=== PATIENT | male | born 1945 | race Caucasian/White ===

== ENCOUNTER 2025-03-17 07:12 | Day surgery (SDC) | payer OTHER, SELFPAY ==
[2025-03-17] VITALS (14 sets, daily range): BP systolic 116–146; BP diastolic 68–82; BMI 24.5
[2025-03-17] MEDS: NSS 239 ML IV (08:01)
--- NOTE | 2025-03-17 13:54 | CONSULT.STRU ---
Consultation
-
Date/Time Consultation Requested: 03/17/2025
Date/Time Consultation Performed: 03/17/2025
Requesting Provider: Dr. Adán Rivera
Performing Provider: ZION Colvin
Reason for Consultation: Aortic stenosis/ TAVR evaluation
Patient History
Physicians
Family Physician: Jacque Yu
Outpatient Press Tender [employer]: Ward Hart
Primary Press Tender [employer]: Ward Hart
History of Present Illness
Mr. Kahn is a very pleasant and active 80yo male with known history of aortic stenosis. Recently he has been experiencing worsening CORRAL with his activities and increased fatigue. He denies chest pain, palpitations, dizziness, syncope, PND,
orthopnea. He does have COPD and interstitial lung disease but feels this CORRAL is different. He follows with Dr. Miner in [place] for his pulmonary issues. His echocardiogram on 10/14/2024 was notable for EF 55-60%, AV PG/M.0/40.2, SERINA: 0.56,
mild AI. He underwent cardiac cath today that demonstrated single vessel RCA disease.
Reviewed the pathophysiology of aortic stenosis with the patient and his daughters Explained the treatment options of SAVR and TAVR. Explained the TAVR evaluation process including follow up BMP, CT TAVR scan, CT surgery consult and Heart Team
discussion. Provided with script for BMP next week, script and appointment for CT TAVR, Consult appointment with Dr. Isabel and a copy of the TAVR education booklet with contact information. Allowed for and answered questions.
Past Medical History
Past Medical History: Angina, CAD, Cancer (Prostate (radiation)), COPD, CORRAL, GERD, Hypercholesterolemia, RAGHU (no CPAP, nocturnal O2 (3L)) and Other (osteoarthritis)
Past Surgical History
Past Surgical History: Other (hernia repair, bilateral TKR)
Dental History
Needs to find a dentist
Family History
Mother: at Age (88yo)
Father: at Age (85yo)
Social History
Alcohol: Daily (beer/wine)
Drug: None
Tobacco: Former Smoker (quit 40 years ago, 1ppd for 20 years)
Personal:
Living: With Spouse
Employment: Retired
Allergies
Allergy/AdvReac Type Severity Reaction Status Date / Time
No Known Allergies Allergy Verified 03/17/25 07:34
Home Medications
�Medication �Instructions �Recorded �Confirmed �Type
albuterol sulfate 90 mcg/actuation 1 inh inhalation ONCE 03/17/25 03/17/25 History
aerosol inhaler
aspirin 81 mg tablet,delayed 81 mg PO DAILY #1 tab 03/17/25 Rx
release
atorvastatin 10 mg tablet 10 mg PO DAILY #1 tab 03/17/25 Rx
bimatoprost 0.01 % eye drops 1 drp ophthalmic (eye) HS 03/17/25 03/17/25 History
(Lumigan)
fluticasone fur. 100 mcg-umeclid 1 inh inhalation DAILY 03/17/25 03/17/25 History
62.5 mcg-vilant 25 mcg
inhalat.powder (Trelegy Ellipta)
ipratropium bromide 17 2 puff inhalation Q8H 03/17/25 03/17/25 History
mcg/actuation HFA aerosol inhaler
omeprazole 20 mg tablet,delayed 20 mg PO DAILY 03/17/25 03/17/25 History
release
STS%
STS %: 1.88%
Review of Systems
-
History Source: Patient
General: Reports Fatigue
HEENT: Reports No Symptoms
Respiratory: Reports CORRAL; Denies Cough or PND
Cardiac: Reports No Symptoms; Denies Chest Pain, Palpitations, Nausea, Vomiting or Edema
Abdomen/GI: Reports Reflux; Denies Nausea, Vomiting or Diarrhea
: Reports No Symptoms, Dysuria, Urgency and Hematuria
Musculoskeletal: Reports No Symptoms
Skin: Reports No Symptoms
Neurological: Reports No Symptoms
Vascular: Reports No Symptoms
Physical Exam
Vital Signs
Temp 97.3 F 03/17/25 07:47
Temp route: Oral 03/17/25 07:47
Pulse 72 03/17/25 13:40
Resp Rate 16 03/17/25 10:57
Blood pressure 131/73 03/17/25 13:29
Blood pressure extremity used: Left upper arm 03/17/25 10:57
Position: Sitting 03/17/25 10:57
MAP (cuff-Pita Monitor) 92 03/17/25 13:29
SaO2 96 03/17/25 13:40
Oxygen Mode of Delivery Room air 03/17/25 10:57
Can the patient verbally communicate their pain? Yes 03/17/25 11:42
Actual Weight 79.8 kg 03/17/25 07:30
Body Mass Index (BMI) 24.5 03/17/25 07:30
Labs
02/23/2025 ([facility])
BUN/Creat: 15/0.89
GFR: 86
WBC: 9.1
Hgb: 13.9
HCT: 41.4
Platelets [id number]
Alb: 4.1
Diagnostic Studies
03/17/2025 Cardiac Catheterization:
HEMODYNAMIC FINDINGS (mmHg):
LV(s/d,EDP): 170/4, 9
Ao(s/d,m): 104/66, 84
Mean gradient on pullback: 46 mmHg
Coronary Angiography:
Dominance: Right
Left Main: Normal
Left Anterior Descending: The left anterior descending artery is a large-caliber vessel that gives rise to 1 large branching high diagonal branch. These vessels have calcification but appear free of focal obstructive disease.
Left Circumflex: The left circumflex is a large-caliber nondominant system that gives rise to 2 major obtuse marginal branches. These vessels are widely patent with only mild luminal irregularities.
Right Coronary: The right coronary artery is a large-caliber vessel that gives rise to a medium caliber posterior descending artery and medium caliber posterior left ventricular branch. The right coronary artery is fairly heavily calcified in the
AV groove. There is smooth 70 to 80% mid RCA stenosis. The distal vessels are widely patent with normal flow and no focal disease.
ASSESSMENT:
1: Single-vessel RCA disease as described above.
2: Severe aortic valvular stenosis.
3: Normal left ventricular filling pressures
CONCLUSIONS and RECOMMENDATIONS:
1: Proceed with TAVR evaluation.
2: Medical therapy for single-vessel coronary artery disease. I doubt this is driving his symptoms but certainly could be treated with intervention if symptoms persist after aortic valve intervention. Will discuss timing of this with the valve
team at [facility].
10/14/2024 Echocardiogram ([facility]):
SUMMARY
1. Left ventricular ejection fraction, by visual estimation, is 55 to 60%.
2. Concentric remodeling of the left ventricle.
3. Decreased left ventricular internal cavity size by (3.11 cm/ 1.55 cm/m2).
4. Normal LV diastolic function.
5. Normal right ventricular size and systolic function.
6. The left atrium is normal in by volume index 21.8 mL/m2.
7. Normal right atrium by area 13.6 cm2.
8. Aortic valve is tricuspid and calcified.
9. AoV velocity of 3.74 m/s; Peak aortic valve gradient = 56.0 mmHg; Mean gradient = 40.2 mmHg; AoV Area by continuity equation = 0.56 cm2; AoV Dimensionless Index = 0.20.
10. Inadequate amount of tricuspid regurgitation to estimate the pulmonary systolic pressure.
11. Study done in Normal sinus rhythm.
12. Compared to a prior TTE study from 09/20/2023 aortic gradients are slightly worse.

PHYSICIAN INTERPRETATION
Left Ventricle:
The left ventricular internal cavity size was decreased. Normal LV diastolic function was demonstrated. Left ventricular ejection fraction, by visual estimation, is 55 to 60%. Concentric remodeling of the left ventricle.
LV Wall Scoring:
All segments are normal.
Right Ventricle:
Normal right ventricular size, wall thickness, and systolic function.
Left Atrium:
The left atrium is normal by volume index 21.8 mL/m2.
Right Atrium:
Right atrium is normal by area 13.6 cm2.
Inferior vena cava normal in size (<2.1 cm) + greater than 50% variably consistent with normal right atrial pressures (3 mmHg).
Interatrial Septum:
Interatrial and interventricular septa appear intact, with no obvious evidence of intracardiac shunting by spectral or color Doppler.
Aortic Valve:
The aortic valve is tricuspid and thickened and calcified. Doppler findings and restricted movement of the aortic valve cusps are consistent with moderate to severe aortic stenosis. The peak aortic valve gradient is 56.0 mmHg. The mean aortic valve
gradient is 40.2 mmHg. There is mild aortic regurgitation.
Mitral Valve:
Structurally normal mitral valve with normal leaflet opening and closing, without any evidence of mitral stenosis or significant regurgitation. The calculated mitral valve area is 4.07 cm�, using a pressure half-time of 54 msec.
Tricuspid Valve:
Inadequate amount of tricuspid regurgitation to estimate the pulmonary systolic pressure.
Pulmonary Valve:
The pulmonary valve is normal in structure and function, with good leaflet excursion, and without any evidence of pulmonary stenosis or significant regurgitation.
Aorta:
The aortic root and ascending aorta appear normal in dimensions, with no evidence of dilatation or obstruction.
Pericardium:
There is no evidence of pericardial effusion.
Sinus Rhythm: Normal sinus rhythm.
Exam
General: Well Developed, Well Nourished and No Apparent Distress
HEENT: Normocephalic, PERRLA and EOMI
Neck: Trachea Midline
Respiratory: Clear; Negative Wheezes, Crackles or Rhonchi
Cardiac: S1/S2, Regular Rhythm and Murmur (Grade II/ MARLA)
GI: Soft, Non Tender, Non Distended and Normal Bowel Sounds
Rectal: Deferred by Provider
Skin: Warm and Dry
Neuro: AO x 3, No Motor Deficits and Nonfocal/Grossly Intact
Extremities: Negative Lower Level Edema
Psych: Calm
Assessment / Plan
-
Procedure Type:�Isolated AVR
Perioperative Outcome Estimate %
Operative Mortality 1.88%
Morbidity & Mortality 7.09%
Stroke 1.32%
Renal Failure 0.755%
Reoperation 3.6%
Prolonged Ventilation 2.86%
Deep Sternal Wound Infection 0.039%
Long Hospital Stay (>14 days) 3.98%
Short Hospital Stay (<6 days)* 52%
Severe Aortic stenosis:
����������� Continue evaluation for aortic stenosis as outpatient
����������� BMP 03/24/2025
����������� CT TAVR scan 03/31/2025 at
����������� CT surgery consult with Dr. Isabel� 04/06/2025
����������� Dental Clearance � needs a dentist
����������� Heart team discussion at [facility]
CAD:
Heart healthy diet
ASA/statin as ordered by cardiology
Discuss at [facility] meeting with Heart team timshanita if necessary to treat the 70-80% mid RCA stenosis
Data Reviewed
-
EKG: Report Reviewed by me
Labor Mediator: Report Reviewed by me, Discussed with Physician, Discussed with Patient and Discussed with Family
Echo: Report Reviewed by me, Discussed with Physician, Discussed with Patient and Discussed with Family
Labs: Labs Reviewed by me
Old Records: Reviewed (Cardiology consult notes)
Total Time Spent with Patient (in minutes): 35
--- NOTE | 2025-03-17 17:42 | ITS.CL.CATH ---
[facility] - Catheterization
Cardiac Catheterization
Procedure Report:
LEFT HEART CATHETERIZATION
Date of Procedure: 03/17/2025
Procedures performed:
1: Coronary angiography
2: Left ventricular hemodynamic assessment
Primary Care Physician: Dr. Jacque Yu
Primary Brake Lining Driller: Dr. Ward Hart
INDICATION: The patient is an 80-year-old man with a past medical history significant for interstitial lung disease and hyperlipidemia who presents with increasing dyspnea in the setting of severe aortic stenosis. He is referred for coronary
angiography in preparation for aortic valve intervention workup. He has no typical angina
ACCESS: The patient was prepped and draped in usual sterile fashion. A 5 Khmer sheath was placed in the right radial artery using the Seldinger over the wire technique.
HEMODYNAMIC FINDINGS (mmHg):
LV(s/d,EDP): 170/4, 9
Ao(s/d,m): 104/66, 84
Mean gradient on pullback: 46 mmHg
ANGIOGRAPHIC FINDINGS:
Single-plane Left Ventriculography in [place] Projection: Not done. Normal EF by echocardiogram performed in October 2024.
Coronary Angiography:
Dominance: Right
Left Main: Normal
Left Anterior Descending: The left anterior descending artery is a large-caliber vessel that gives rise to 1 large branching high diagonal branch. These vessels have calcification but appear free of focal obstructive disease.
Left Circumflex: The left circumflex is a large-caliber nondominant system that gives rise to 2 major obtuse marginal branches. These vessels are widely patent with only mild luminal irregularities.
Right Coronary: The right coronary artery is a large-caliber vessel that gives rise to a medium caliber posterior descending artery and medium caliber posterior left ventricular branch. The right coronary artery is fairly heavily calcified in the
AV groove. There is smooth 70 to 80% mid RCA stenosis. The distal vessels are widely patent with normal flow and no focal disease.
Fluoroscopy Time (min): 3.1
Radiation Dose (mGy): 271
DAP (Gy.cm2): 18
Closure device: None. A TR band was applied for hemostasis at the right wrist.
Complications: None.
ASSESSMENT:
1: Single-vessel RCA disease as described above.
2: Severe aortic valvular stenosis.
3: Normal left ventricular filling pressures
CONCLUSIONS and RECOMMENDATIONS:
1: Proceed with TAVR evaluation.
2: Medical therapy for single-vessel coronary artery disease. I doubt this is driving his symptoms but certainly could be treated with intervention if symptoms persist after aortic valve intervention. Will discuss timing of this with the valve
team at [facility].
Ness Rivera M.D.
Copy to: Dr. Jacque Yu
== END 2025-03-17 14:10 | disposition home or self-care (01) ==
LOC: CATH 07:12
PROVIDERS: ATTENDING PHYSICIAN Internal Medicine Interventional Cardiology; FAMILY PHYSICIAN Family Medicine; OTHER PHYSICIAN Internal Medicine Cardiovascular Disease
DX: I25.10 Atherosclerotic heart disease of native coronary artery without angina pectoris (principal); I08.2 Rheumatic disorders of both aortic and tricuspid valves; E78.00 Pure hypercholesterolemia, unspecified; J44.9 Chronic obstructive pulmonary disease, unspecified; J84.9 Interstitial pulmonary disease, unspecified; R06.09 Other forms of dyspnea; K21.9 Gastro-esophageal reflux disease without esophagitis; G47.33 Obstructive sleep apnea (adult) (pediatric); Z85.46 Personal history of malignant neoplasm of prostate; Z87.891 Personal history of nicotine dependence; Z79.82 Long term (current) use of aspirin
CPT/HCPCS: C1894; 93458; Q9967

== ENCOUNTER → 2025-03-31 09:53 | Outpatient (REF) | payer OTHER, SELFPAY | LOC: RAD 09:53 | PROVIDERS: ATTENDING PHYSICIAN Nurse Practitioner Adult Health; OTHER PHYSICIAN Internal Medicine Critical Care Medicine | DX: I35.0 Nonrheumatic aortic (valve) stenosis (principal) | CPT/HCPCS: 74174; 75572; Q9967 ==

== ENCOUNTER 2025-04-14 08:20 | Day surgery (SDC) | payer OTHER, SELFPAY ==
[2025-04-14] VITALS (11 sets, daily range): BP systolic 120–148; BP diastolic 60–82; BMI 25.6
[2025-04-14 08:44] LABS: Hematocrit 44.4 % (39.0-52.0); Hemoglobin 15.4 g/dL (13.0-18.0); Mean Corp Hgb Conc. 34.7 g/dL (33.0-37.0); Mean Corpuscular Hgb 32.2 pg (27.0-31.0); Mean Corpuscular Volume 92.9 fL (80.0-94.0); Platelet Count 188 10^3/uL (130-400); Red Blood Cell Count 4.78 10^6/uL (4.70-6.10); Red Cell Dist. Width 13.1 % (11.5-14.5); White Blood Cell Count 6.9 10^3/uL (4.8-10.8)
[2025-04-14] MEDS: LOW STRENGTH ASPIRIN 81 MG PO (09:11)
[2025-04-14] MEDS: NSS 236 ML IV (09:13)
[2025-04-14] MEDS: NSS 1000 IV (10:43)
--- NOTE | 2025-04-14 10:56 | ITS.CL.ANGIO ---
[employer] - Angioplasty
Angioplasty
Procedure Report:
LEFT HEART CATHETERIZATION
Date of Procedure: April 14, 2025
Procedures performed:
1: Percutaneous coronary intervention of the right coronary artery with placement of a 3.5 x 26 mm Art drug-eluting stent postdilated to high-pressure with a 3.75 mm diameter noncompliant balloon
Primary Care Physician: Dr. Jacque Yu
Primary Machine Adjuster Leader Case Trim: Dr. Ward Hart
INDICATION: The patient is an 80-year-old man with past medical history significant for interstitial lung disease and hyperlipidemia who is being evaluated for TAVR. Pre-TAVR workup found a obstructive mid RCA lesion and after the valve team
discussion we have elected to proceed with PCI prior to TAVR. He was pretreated with Plavix.
ACCESS: The patient was prepped and draped in usual sterile fashion. A 6 Gibraltarian sheath was placed in the right radial artery using the Seldinger over the wire technique.
HEMODYNAMIC FINDINGS (mmHg):
LV(s/d,EDP): Valve not crossed
Ao(s/d,m): 111/80, 94
Coronary Angiography:
Please refer to full diagnostic study performed at [facility] on March 17, 2025
Percutaneous Coronary Intervention (PCI): The patient was pretreated with aspirin and Plavix. A 6 Gibraltarian JR4 guiding catheter was used to engage the right coronary artery. A Hi-Torque floppy wire was easily advanced across the mid lesion into the
distal vessel. Predilation was performed with a 2.5 x 12 mm balloon. A 6 Gibraltarian Guideliner was required to deliver a 3.5 x 26 mm Elwood drug-eluting stent which was deployed at 14 sharmin. The stent was postdilated with a 3.75 mm diameter noncompliant
balloon inflated to 16 sharmin. This was done in a distal to proximal fashion taking care to stay within the stented margins.
FINAL RESULT: 0% in-stent residual stenosis with an outstanding angiographic result and XIN-3 flow in all vessels
Fluoroscopy Time (min): 6.7
Radiation Dose (mGy): 341
DAP (Gy.cm2): 22
Closure device: None. A TR band was applied for hemostasis at the right wrist.
Complications: None.
ASSESSMENT:
1: Successful PCI of the right coronary artery with placement of a drug-eluting stent as described above.
2: Known severe aortic valvular stenosis.
CONCLUSIONS and RECOMMENDATIONS:
1: Routine post PCI medical therapy and monitoring. The patient will need dual antiplatelet therapy with aspirin 81 mg and clopidogrel 75mg daily for a year and aspirin 81 mg daily uninterrupted indefinitely.
2: Medical therapy for coronary artery disease.
3: Continue TAVR evaluation and plan.
Ness Rivera M.D.
[2025-04-14 12:01] LABS: ACT-LR - POC > 397 Seconds (116-155)
--- NOTE | 2025-04-14 15:04 | W.PN.UPDATE ---
Update Note
Progress Note Update
80 yo WM s/p PCI RCA (same day). He denies cp, sob, tom diet, voiding, amb w/o dizziness, EKG SR PAC's, one episode of PAT, R rad site c/d/i no HT, soft. He will continue DAPT ASA/Plavix. He will have TAVR next month. Cardiac rehab c/s. He will f/u
Dr. Hart in 1 mo. He is for d/c home after 330p.
== END 2025-04-14 15:30 | disposition home or self-care (01) ==
LOC: CATH 08:20
PROVIDERS: ATTENDING PHYSICIAN Internal Medicine Interventional Cardiology; FAMILY PHYSICIAN Family Medicine; OTHER PHYSICIAN Internal Medicine Cardiovascular Disease
DX: I25.10 Atherosclerotic heart disease of native coronary artery without angina pectoris (principal); Z79.02 Long term (current) use of antithrombotics/antiplatelets; Z79.82 Long term (current) use of aspirin; I35.0 Nonrheumatic aortic (valve) stenosis
CPT/HCPCS: 85027; 85347; 93005; C1725; C1769; C1874; C1887; C1894; C9600; Q9967

== ENCOUNTER 2025-05-27 07:23 | Inpatient (IN) | payer OTHER, SELFPAY ==
--- NOTE | 2025-05-12 11:21 | HPS.HSE ---
Family Physician
-
Family Physician: Jacque Yu
Chief Complaint
-
CORRAL, Fatigue
History of Present Illness
Mr. Kahn is a very pleasant and active 80yom with a past medical history significant for , CAD, COPD, RAGHU (nocturnal O2), HLD, and prostate ca. Recently he has had worsening CORRAL with his activities and increased fatigue. He denies chest pain,
palpitations, dizziness, syncope, PND, orthopnea. He follows with pulmonology, Dr. Miner in [employer]. His echocardiogram on 10/14/2024 is notable for EF 55-60%, AV PG/M.0/40.2, SERINA: 0.56, mild AI. Cardiac catheterization from 03/17/2025
demonstrated single vessel RCA disease. He was brought back for PCI to the RCA on 04/14/[address] Rivera. Reviewed patient with the heart team in the SDM meeting on 04/02/2025 and the team was agreeable to proceed with TF TAVR utilizing a 29 mm S3
via transfemoral access. Reviewed the risks of the procedure with the patient as discussed in consult with Dr. Isabel including PPM, vascular injury, and stroke. Assessed patient in preadmission testing and confirmed medication list. He will take
aspirin and plavix prior to his 0730 [facility]. Allowed for and answered questions to the best of my ability.
Medical History
Past Medical History
Past Medical History: Reports CAD (Recent JAMI to RCA), Cancer (prostate (XRT)), COPD, GERD, Valvular Disease (As) and Other (RAGHU, hyperlipidemia, BLACKFEET)
Past Surgical History: Reports Orthopedic (TKR) and Other (inguinal hernia repair, cataract surgery)
Social History
Tobacco: Former Smoker
Alcohol: Daily (1-2 drinks (beer or wine))
Drug: None
Personal:
Living: With Family
Employment: Retired
Family History
Family History: Not pertinent
Allergies / Home Medications
Allergies reflects when Allergies were last updated in [employer] (mytaxi).
Home Medications with original date entered in [employer] (mytaxi)
Albuterol Sulfate HFA 108 (90 Base) MCG/ACT Aerosol Solution 1 puff as needed Inhalation every 4 hrs
Aspirin Adult Low Dose(Aspirin) 81 MG Tablet Delayed Release 1 tablet Orally Once a day
Atorvastatin Calcium 10 MG Tablet 1 tablet Orally Once a day
Bimatoprost 0.01 % Solution 1 drop into affected eye in the evening Ophthalmic Once a day , Notes to Pharmacist: millie
Dupixent(Dupilumab) 300 MG/2ML Solution Prefilled Syringe as directed Subcutaneous every 2 weeks
Ipratropium [place] HFA 17 MCG/ACT Aerosol Solution 2 puffs as needed Inhalation every 8 hrs
Omeprazole 20 MG Capsule Delayed Release 1 capsule 1/2 to 1 hour before morning meal Orally Once a day
Trelegy Ellipta(Jfzrryoedyo-Bjrjrsuoj-Ufspqy) 100-62.5-25 MCG/ACT Aerosol Powder Breath Activated 1 puff Inhalation Once a day
Allergy/Medication List:
NKDA
Review of Systems
-
History Source: Patient
A 12 point ROS was completed and negative except as noted: Yes
Constitutional: Reports Fatigue
Respiratory: Reports Other (CORRAL)
Physical Exam
Physical Exam
General: Well Developed and Well Nourished
HEENT: NormoCephalic
Respiratory: Clear
Cardiac: Murmur (III/)
Breast: Deferred by me
GI: Soft, Non Tender and Non Distended
Rectal: Deferred by Provider
Genito-urinary: Deferred by me
Musculoskeletal: No Edema
Skin: Warm and Dry
Neuro: Awake, Alert and Oriented
Psych: Calm
Data Reviewed
-
CT Scan: Report Reviewed by me and Discussed with Physician (TAVR CT scan reviewed with the heart team)
Medical Tests (Nuc Med, Echo, EKG etc): Report Reviewed by me and Discussed with Physician (Echo and cath reviewed with the heart team)
Lab Data: Labs Reviewed by me
Old Records: Reviewed
Impression/Plan
-
IMPRESSION/PLAN:
Aortic Stenosis
TF TAVR planned utilizing a 29 mm S3 with Drs. Zaragoza and Chalo
Continue aspirin and plavix
POD#1/#30 echocardiogram
Cardiac rehab consult
Labs
-
Labs:
WBC 7.0 10^3/uL (4.8-10.8) 05/12/25 12:21
RBC 4.67 10^6/uL (4.70-6.10) L 05/12/25 12:21
Hgb 14.6 g/dL (13.0-18.0) 05/12/25 12:21
Hct 43.1 % (39.0-52.0) 05/12/25 12:21
Plt Count 179 10^3/uL (130-400) 05/12/25 12:21
Sodium 137 mmol/L (135-145) 05/12/25 12:21
Potassium 4.8 mmol/L (3.5-5.1) 05/12/25 12:21
Chloride 103 mmol/L (98-107) 05/12/25 12:21
Carbon Dioxide 25 mmol/L (22-30) 05/12/25 12:21
BUN 12 mg/dl (9-20) 05/12/25 12:21
Creatinine 0.7 mg/dL (0.7-1.3) 05/12/25 12:21
eGFR > 60.00 05/12/25 12:21
Glucose 108 mg/dl (70-99) H 05/12/25 12:21
Calcium 9.8 mg/dl (8.4-10.2) 05/12/25 12:21
Tuv-E-Ujkgxsmgfgy Pept 335 pg/ml 05/12/25 12:21
Albumin 4.6 g/dl (3.5-5.0) 05/12/25 12:21
[2025-05-12 12:07] VITALS: BMI 24.8
[2025-05-12 13:00] LABS: Hematocrit 43.1 % (39.0-52.0); Hemoglobin 14.6 g/dL (13.0-18.0); Mean Corp Hgb Conc. 33.9 g/dL (33.0-37.0); Mean Corpuscular Volume 92.3 fL (80.0-94.0); Nucleated Red Blood Cells % 0 % (-); Platelet Count 179 10^3/uL (130-400); Red Cell Dist. Width 13.0 % (11.5-14.5)
[2025-05-12 13:06] LABS: INR 0.90; PT 12.6 Sec (11.4-14.6)
[2025-05-12 13:13] LABS: ALT (SGPT) 15 U/L (0-50); AST (SGOT) 18 U/L (17-59); Albumin 4.6 g/dl (3.5-5.0); Alkaline Phosphatase 63 U/L (38-126); Blood Urea Nitrogen 12 mg/dl (9-20); Calcium 9.8 mg/dl (8.4-10.2); Carbon Dioxide 25 mmol/L (22-30); Chloride 103 mmol/L (98-107); Estimated Creatinine Clearance 85 ml/min; Glucose 108 mg/dl (70-99); Potassium 4.8 mmol/L (3.5-5.1); Sodium 137 mmol/L (135-145); Total Protein 7.8 g/dl (6.3-8.2); eGFR > 60.00
[2025-05-12 13:50] LABS: Urine Character Clear (Clear)
[2025-05-12 13:56] LABS: Glycohemoglobin (HgbA1c) 5.3 % (4.0-5.6)
--- NOTE | 2025-05-12 14:02 | CM ---
Chart reviewed. Met with the patient in PAT. Reviewed preoperative and postoperative instructions and restrictions, along with showering guidelines. Gave patient 2 soaps. Patient is agreeable to a home visit by CT Transitional RN. Patient is
independent of ADLS, lives with his in a 2 STH, 1 NADIR, 0 DME. Plan is for the patient to go home with CT Transitional RN.
[2025-05-27] VITALS (24 sets, daily range): BP systolic 73–154; BP diastolic 49–86; BMI 24.5
[2025-05-27] MEDS: ANCEF 10 IV ×2 (10:00)
--- NOTE | 2025-05-27 10:27 | CM ---
Patient in OR today for planned TAVR.
Reviewed initial assessment. Pt. resides w/ spouse in a 1 STH, 0 NADIR. Functionally, patient is indep. at baseline w/ ADLs, mobility without the use of any assisted device.
Antic. DC plan is for home w/ CT Transitional Care RN.
CM to follow.
[2025-05-27 11:26] LABS: ACT-LR - POC 327 Seconds (116-155)
--- NOTE | 2025-05-27 11:38 | W.CVOR.SURPR ---
CVOR Surgeon Immed Pre Op
-
The structural heart team examined this patient prior to performance of the scheduled procedure.
The patient's condition is unchanged from the time of the dictated/written History and
Physical and the patient is able to undergo the scheduled procedure.
--- NOTE | 2025-05-27 11:38 | W.IMMPOSTOP ---
Surgical Immed Post Op Note
-
[id number]
STRUCTURAL HEART PROCEDURE NOTE:
Preoperative Dx:
Severe aortic stenosis (P/M 56/40.2, SERINA 0.56)
Mild aortic insufficiency
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
COPD/ILD
RAGHU on CPAP, 3L NC at HS
[place]
Prostate CA s/p XRT
OA s/p b/l TKA
Postoperative Dx:
Same
Procedures:
1) L MEDICAL DATA ENTRY CLERK access w/ tactile, U/S, and fluoroscopic guidance, micropuncture technique, limited angiography, long 6Fr sheath placement
2) L CFV access w/ U/S and fluoroscopic guidance, micropuncture technique, long 6Fr sheath placement
3) R MEDICAL DATA ENTRY CLERK access w/ tactile, U/S, and fluoroscopic guidance, micropuncture technique, limited angiography, 8Fr dilator placement
4) Perclose placement x 2 into R MEDICAL DATA ENTRY CLERK, 8Fr sheath placement
5) Attempted placement of temporary pacing wire via L CFV access - unsuccessful
6) Exchange of long 6Fr L CFV sheath for longer 6Fr venous sheath - attempted temporary pacing wire placement - unsuccessful
7) Limited IVC/RA venography
8) R IJ access w/ U/S and fluoroscopic guidance, 6Fr sheath placement
9) Placement of temporary pacing wire via R IJ - threshold testing
10) Placement of pigtail catheter in RCC w/ limited aortography & confirmation of coplanar valve deployment angles
11) Placement of Jennings E-sheath via R MEDICAL DATA ENTRY CLERK (systemic heparinization)
12) Wire purchase across stenotic AV (AL-1, soft-tip straight, LVEDP assessment (23mmHg), extra-stiff wire)
13) R TF TAVR w/ placement of 29mm NIRANJAN 3
14) Completion aortography
15) Completion TTE (mean gradient 3mmHg, trace PVL)
16) Removal of valve delivery system/Jennings E-sheath w/ R MEDICAL DATA ENTRY CLERK mgmt w/ perclose sutures x 2; manual pressure, completion R ileofemoral angiography
17) Removal of temporary pacing wire
18) Removal of L MEDICAL DATA ENTRY CLERK 6Fr sheath w/ mgmt w/ 6Fr angioseal; manual pressure
19) Removal of L CFV 6Fr sheath; manual pressure
20) R IJ 6Fr sheath maintained in-situ
Digital Commentator:
Dr. María Zaragoza
Cardiac Surgeon:
Dr. Ernie Isabel
Anesthesia:
MAC & local to B/L groins, R neck
Implants:
Jennings [employer], 29mm NIRANJAN 3; [id number], SN: [id number]
Perclose x 2 to R MEDICAL DATA ENTRY CLERK
6Fr angioseal x 1 to L MEDICAL DATA ENTRY CLERK
Complications:
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
Cath Data:
Start: 1020hrs, Deploy: 1117hrs, End: 1134hrs
FT: 13.9min, mGy: 237, DAP: 27, Contrast: 100
Post-TTE: mean gradient 3mmHg, trace PVL
Condition:
Stable/guarded to recovery
[2025-05-27] MEDS: LEVOPHED 250 IV (12:09)
--- NOTE | 2025-05-27 12:50 | ITS.CL.TAVR ---
Media Services Director - TAVR Report
TAVR PRocedure
Procedure Report:
TRANSCATHETER AORTIC VALVE REPLACEMENT
Date of Procedure: May 27, 2025
Referring: Drs. Ward Hart and Ness Rivera
Operators: Drs. María Zaragoza and Ernie Isabel
PROCEDURE PERFORMED:
1. Successful placement of 29 mm Jennings Gilberto S3 aortic valve via right common femoral approach.
ACCESS:
1. Right common femoral artery, 16 Kosovan sheath, under ultrasound guidance using a micropuncture kit.
2.Left common femoral vein, 6 Kosovan sheath, under ultrasound guidance using a micropuncture kit.
3. Left common femoral artery, 6 Kosovan sheath, under ultrasound guidance using a micropuncture kit.
4. Right internal jugular vein, 6 Kosovan sheath, under ultrasound guidance using a micropuncture kit.
Ultrasound was utilized for vascular access. The right and left femoral artery and vein were visualized under ultrasound, and the vessels was patent and arteries were pulsatile. An image was stored permanently in the patient's medical record.
Under direct ultrasound guidance, a 6 Kosovan sheaths was inserted into the left common femoral artery and vein, and an 8 Kosovan sheath in the right common femoral artery, and a 6 ecuadorean sheath in RIJ vein respectively, using a micropuncture kit
through a modified Seldinger technique
PREPROCEDURE NYHA CLASS: II
DESCRIPTION OF PROCEDURE: The patient was referred for assessment of severe symptomatic aortic stenosis and following a comprehensive evaluation it was felt that transcatheter aortic valve replacement (TAVR) would be the most appropriate treatment.
Informed consent was obtained prior to the procedure. A 'time-out' was called and the procedural plan was verbally confirmed by anesthesia, surgery, perfusion, and open hearth furnace laborer staff.
Arterial and venous access site were obtained in the left
common femoral artery and vein using ultrasound guidance and micropuncture technique. 6 Fr. sheaths were inserted.
Given despite multiple attempts we could not successfully advance a deep transvenous pacing wire into the right ventricle due to significant tortuosity in the IVC, decision was made to proceed with right IJ venous access and a 5 Fr. transvenous
pacing wire was succesfully advanced to the right ventricle where excellent pacing thresholds were obtained.
A 5 Fr. pigtail catheter was then advanced to the proximal ascending aorta / right aortic cusp where angiography was performed in multiple angles to define the co-planar angle that was most appropriate valve deployment (COTTON 10/CAU 16).
Ultrasound guidance was then used to obtain arterial access in the right common femoral artery and a 4 Fr. micropuncture sheath was inserted. Angiography was performed and the arteriotomy site appeared appropriate for preclosure with two Perclose
devices. An 8 Fr sheath was then inserted back into the common femoral artery over a J-tipped guidewire. An AL1 catheter was positioned in the proximal descending aorta. An Extra Stiff 0.035' J-tip wire was inserted to provide extra-support to
facilitate the Jennings eSheath delivery. The 16 Fr. Jennings eSheath was successfully advanced in the descending thoracic aorta.
An AL1 catheter was advanced through the Jennings eSheath over a 0.035' J-tip guide wire. The AL1 catheter was positioned just above the aortic valve. A 0.035' Straight tip wire probed the aortic valve and crossed the stenotic leaflets. The AL1
was then advanced to the mid left ventricle. Estimated LV end-diastolic pressure invasively was 23mmHg. An Amplatz Extra-stiff wire with a generous curved tip was then positioned in the left ventricular apex. A 29 mm Jennings Gilberto S3 valve was
brought to the table and the orientation of the valve on the balloon delivery system was confirmed by all operators. The Gilberto S3 valve was advanced through the eSheath and into the proximal descending thoracic aorta. The Gilberto S3 valve was
centered on the delivery balloon and the entire system was retroflexed as it crossed the aortic arch. The Gilberto S3 delivery system was then advanced across the stenotic valve and the 29 mm Gilberto S3 valve was deployed during rapid pacing. The
valve deployment was uneventful. Transthoracic echocardiographic images post valve deployment revealed minimal aortic insufficiency with excellent position of the aortic prosthesis.
The Jennings balloon and delivery system were then removed. The Jennings sheath was removed and the Perclose knots were advanced to the arteriotomy site resulting in excellent hemostasis.
Bilateral femoral angiography: Femoral arteriotomy above the bifurcation and below the inferior epigastric artery. There is mild atherosclerotic plaque diffusely in the visualized external iliac and femoral vessels.
Fluoro Time: 13.9 min, Dose: 237 mGy, DAP : 27 Gy.cm2
CONCLUSIONS:
1. Severe symptomatic aortic stenosis. Successful deployment of a 29 mm Gilberto S3 valve with minimal aortic insufficiency post procedure
2. Successful arteriotomy closure with 2 Perclose devices.
María Zaragoza MD, FACC, [facility]
Copy to: Drs. Ward Hart and Ness Rivera
[2025-05-27] MEDS: ANCEF 5 IV (18:18)
[2025-05-27] MEDS: XALATAN OPHTHALMIC SOLUTION 1 DROP BOTH EYES (18:37)
--- NOTE | 2025-05-27 19:33 | PTCARENOTE ---
Pt received from recovery area post TAVR. Pt denied any discomfort. Pt with bilateral femoral dressings, some oozing from right femoral artery, dressing changed twice, left femoral site with dry and intact dressing. No sign of hematoma at either
site. Telemetry initially showed sinus rhythm with LBBB. Once pt was up off bedrest LBBB was no longer visible. Pt walking in halls, eating well and passing urine without difficulty. Will monitor groin sites closely, plan for ECHO in AM.
[2025-05-27] MEDS: SYMBICORT 80/4.5 MCG INHALER 2 PUFF INH (19:48)
[2025-05-27] MEDS: PEPCID 20 MG PO (22:09)
[2025-05-27] MEDS: LIPITOR 10 MG PO (22:10)
--- NOTE | 2025-05-27 23:48 | PTCARENOTE ---
Patient received at change of shift resting in the bed. Sinus rhythm with first degree AVB on telemetry. Oxygen saturation 96% on room air. Bilateral groin sites ecchymotic but soft to palpation, no evidence of hematoma. Left groin C/D/I. Right
groin site oozing, drainage marked. Bilateral pedal pulses palpable. Right IJ puncture with gauze and tegaderm C/D/I. The patient presently denies pain or discomfort, feels good overall. Per the patient he sleeps with 3L NC, applied HS, oxygen
saturation 97% on 3L.
The right groin site was noted to still be oozing, manual pressure was held, external hemostasis pad, gauze and tegaderm applied. The right groin continued to ooze and the drainage was marked. CT surgery SHAQ Marin in to assess, Further manual
pressure was applied followed by the sandbag being applied for one hour. Following removal of the sandbag the site was no longer oozing as it was previously. The patient continues to deny pain. VSS. Plan of care discussed. Call dubose within reach.
Care ongoing.
[2025-05-28 02:40] VITALS: BP 142/79
[2025-05-28 02:47] VITALS: BMI 24.6
[2025-05-28 02:59] LABS: Hematocrit 37.3 % (39.0-52.0); Hemoglobin 12.9 g/dL (13.0-18.0); Mean Corp Hgb Conc. 34.6 g/dL (33.0-37.0); Mean Corpuscular Volume 91.4 fL (80.0-94.0); Platelet Count 142 10^3/uL (130-400); Red Cell Dist. Width 13.0 % (11.5-14.5)
[2025-05-28 03:29] LABS: Blood Urea Nitrogen 19 mg/dl (9-20); Calcium 9.0 mg/dl (8.4-10.2); Carbon Dioxide 24 mmol/L (22-30); Chloride 107 mmol/L (98-107); Estimated Creatinine Clearance 85 ml/min; Glucose 108 mg/dl (70-99); Potassium 4.7 mmol/L (3.5-5.1); Sodium 135 mmol/L (135-145); eGFR > 60.00
[2025-05-28 06:36] VITALS: BP 131/78
[2025-05-28] MEDS: SPIRIVA RESPIMAT 2.5 MCG 2 PUFF INH (07:11)
[2025-05-28] MEDS: SYMBICORT 80/4.5 MCG INHALER 2 PUFF INH (07:11)
[2025-05-28 07:32] VITALS: BP 106/68
--- NOTE | 2025-05-28 08:50 | W.PN.CT ---
Today's Communication / Plan
-
-pod #1
-no significant issues overnight
-little oozing in R groin, likely from subcut. tissues, asymptomatic, BP stable - resolved with manual pressure and sandbag
-new LBBB post TAVR- resolved
-nsr high 50s-60s overnight. No ronak or pauses
-Echo today
-current meds (ASA, Plavix, Lipitor, Pepcid, Symbicort, Spiriva, Albuterol)
-encourage IS, ambulate
-possible d/c home with heart monitor
Assessment / Plan
-
- Severe symptomatic - s/p R TF TAVR w/ placement of 29mm NIRANJAN 3 TAVR valve on 05/27/25, pod #1
- Post-TTE: mean gradient 3mmHg, trace PVL
- LVEDP assessment (23mmHg)
- Mild aortic insufficiency/severe
- Single vessel RCA dz s/p PCI/JAMI
- COPD/ILD
- RAGHU on CPAP, 3L NC at HS
- [place]
- Prostate CA s/p XRT
- OA s/p b/l TKA
- OA
- b/l inguinal hernia repair
Discussed patient care with: Nursing and Care Team
Subjective
-
Date of Service: May 28, 2025
Objective Data
-
PT 12.6 Sec (11.4-14.6) 05/12/25 12:21
INR 0.90 05/12/25 12:21
Vital Signs
Vital Signs
Temp Pulse Resp BP Pulse Ox
99.0 F 57 18 136/86 97
05/27/25 23:04 05/28/25 01:00 05/27/25 23:04 05/27/25 23:04 05/27/25 23:04
CT Intake/Output/Weight
05/27/25 05/27/25 05/28/25
06:59 18:59 06:59
Intake Total 1800 / 1800
Output Total 300 / 400 100 / 400
Balance 1500 / 1400 -100 / 1400
SaO2: 97
Physical Exam
-
General: Awake and AOx3
Cardiovascular: Regular rate & rhythm and Murmur (11/09 systolic @ lsb)
Respiratory: Clear
Incision: Other (groins are cdi, soft, nontender, no hematoma b/l)
Extremities: No Edema
Abdomen: soft, nontender, nondistended, + bowel sounds
Data Reviewed
-
Lab Results: Results Reviewed
Medications: Active Meds Reviewed
Chest X-Ray: Report Reviewed and Image Reviewed
ECG: Report Reviewed and Image Reviewed
[2025-05-28] MEDS: PLAVIX 75 MG PO (09:25)
[2025-05-28] MEDS: ASPIR LOW (ENTERIC COATED) 81 MG PO (09:25)
--- NOTE | 2025-05-28 09:41 | W.PN.CARDCBS ---
Addendum entered and electronically signed by María Zaragoza MD 05/28/25 12:17:
I saw and examined the patient.
The Shell Sieve Operator's note was reviewed and I agree with the note.
Comment: Patient is doing well post transfemoral 29 mm Jennings NIRANJAN TAVR valve on May 27, 2025. Mild oozing at the right femoral arterial access site. Minimal tenderness. No other complaints this morning. He did not sleep well overnight.
Vital signs and lab work reviewed. On exam patient is well-appearing, awake, alert and oriented x 3, regular rate, normal S1 and S2, no murmur, rubs or gallops, lungs are clear to auscultation bilaterally, no JVD, abdomen is soft, nontender,
nondistended with active bowel sounds, warm extremities without significant edema. Bilateral groin sites with dressing in place without evidence of hematoma or bruit.
Recommendations:
1. Patient is status post transfemoral 29 mm Jennings NIRANJAN TAVR on May 27, 2025. Echocardiogram this morning with stable post TAVR mean transaortic gradients of 8 mm with normal LV systolic function and no evidence of pericardial effusion.
2. Continue with daily baby aspirin and Plavix given recent PCI.
3. We will send home with a Holter monitor given transient left bundle branch block and bradycardia.
4. Outpatient cardiology follow-up with Dr. Ward Hart.
Overall as long as groins remain stable especially with ambulation patient stable for discharge home.
María Zaragoza MD, [facility], [facility]
Original Note:
Today's Communication / Plan
-
doing well post TAVR
continue asa, plavix
follow groins, oozy overnight
echo pending
possible security monitor upon DC
OP follow up with Dr. Hart
Impression / Plan
-
[facility] Blueprint Processor[facility]
Assessment:
- Severe symptomatic s/p R TF TAVR 29mm NIRANJAN 3 TAVR 05/27/25
- Transient post op LBBB
- Mild aortic insufficiency
- CAD s/p RCA PCI 04/14/25
- COPD/ILD
- RAGHU on CPAP, 3L NC at HS
- [place]
- Prostate CA s/p XRT
- OA s/p B/L TKA
Echo 05/27/2025: EF 55%, status post 21 mm Jennings NIRANJAN S3 TAVR with peak/mean gradient 6/3 mmHg, trace AR, normal pericardium without effusion
Plan:
- Status post right transfemoral TAVR 05/23/2025
-Doing well overnight
-Had some oozing from right groin site, now improved. With bilateral bruising, but soft, nontender to palpation. Hemoglobin 12.9. Continue aspirin and Plavix given recent RCA PCI 04/2025
-Echo from 05/27 as above, check echo 05/28
-Had transient left bundle branch block postprocedure, no evidence of recurrence or bradycardia/pauses on review of telemetry overnight. Will determine need for cardiac monitoring on discharge
-Ambulate
-For likely discharge to home later today
-Outpatient cardiac follow-up with Dr. Hatr
-Discussed with nursing, CT surgery
Progress Note - Blueprint Processor
Subjective
Date of Service: May 28, 2025
Patient reports did not sleep well, however no complaints of chest pain or shortness of breath. Denies groin pain
Objective
Labs:
05/28/25 02:45
05/28/25 02:45
Labs
Hgb 12.9 g/dL (13.0-18.0) L 05/28/25 02:45
Hct 37.3 % (39.0-52.0) L 05/28/25 02:45
Plt Count 142 10^3/uL (130-400) 05/28/25 02:45
PT 12.6 Sec (11.4-14.6) 05/12/25 12:21
INR 0.90 05/12/25 12:21
Sodium 135 mmol/L (135-145) 05/28/25 02:45
Potassium 4.7 mmol/L (3.5-5.1) 05/28/25 02:45
BUN 19 mg/dl (9-20) 05/28/25 02:45
Creatinine 0.7 mg/dL (0.7-1.3) 05/28/25 02:45
Glucose 108 mg/dl (70-99) H 05/28/25 02:45
Vital Signs and I&O:
Vital Signs
Temp Pulse Resp BP Pulse Ox
97.9 F 75 16 106/68 95
05/28/25 07:32 05/28/25 07:32 05/28/25 07:32 05/28/25 07:32 05/28/25 09:20
Vital Signs
Temp Pulse Resp BP Pulse Ox
97.9 F 75 16 106/68 95
05/28/25 07:32 05/28/25 07:32 05/28/25 07:32 05/28/25 07:32 05/28/25 09:20
Intake & Output
05/26/25 05/27/25 05/28/25 05/29/25
07:59 07:59 07:59 07:59
Intake Total 1800 / 1800
Output Total 1450 / 1450
Balance 350 / 350
Physical Exam
Physical Exam
GEN: No distress, awake, alert, oriented x3
HEENT: supple, anicteric, mmm, eomi
LUNGS: CTA B/L, no wheezes/rales
CV: Reg, S1/S2, 1/6 syst LSB
ABD: soft, BS+, NT/ND
EXT: No cyanosis, clubbing, edema
NEURO: Gross non-focal
SKIN: Warm, pink, dry. No rash. B/L groin sites soft, NTTP. B/L ecchymoses extending around flank, not firm/tense, mild amount of blood on R groin dressing
--- NOTE | 2025-05-28 10:12 | W.DCSUMMARY ---
Discharge Summary
Discharge Data
Date of Admission: 05/27/25
Date of Discharge: 05/28/25
-
Pending Results: No
Hospital Course
Primary care physician: Jacque Yu
Outpatient aircraft servicer: Pramod Hart
Inpatient consultants: [facility]
Procedures:
1. R TF TAVR
Primary Diagnosis:
1. severe aortic stenosis with mild aortic insufficiency
Secondary Diagnoses:
1. 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
2. COPD/ILD
3. RAGHU on CPAP, 3L NC at HS
4. [place]
5. Prostate CA s/p XRT
6. OA s/p b/l TKA
7. Acute post-op new left bundle branch block
HPI: 80 year old male was electively admitted on 05/27/25 for TAVR due to severe aortic stenosis.
Hospital course: Patient underwent R TF TAVR #29mm GILBERTO [address] Ernie Isabel and María Zaragoza. For further details, please see operative report. Levophed used in recovery and quickly discontinued. Post-procedure TTE reported aortic valve
mean gradient 3mmHg, trace PVL. LVEDP assessment (23mmHg). ECG with sinus bradycardia 40s and new left bundle branch block. RIJ sheath removed in recovery and patient transitioned to IVU. Right groin site with minimal sanguinous drainage on
dressing. Pressure held with resolution of oozing. No issues overnight. Morning ECG with sinus rhythm and resolution of LBBB. CXR without acute pulmonary abnormality. ASA/Plavix initiated. TTE reported an EF of 60% with AV gradients 16/8mmHg, no AI
, trace TR and no pericardial effusion.
Home medication changes:
none
Discharge Plan
-
Patient Disposition: Home (Routine Discharge)
Discharge Diagnosis/Procedures: R TF TAVR #29mm Gilberto 3 (05/27)
Condition: Good
Diet: Low Fat, Low Cholesterol and 2 Gram Sodium
Activity: As tolerated
Driving Restrictions: No driving for 1 week
Bathing Restrictions: OK to Shower
Others Tests: Your 30-day follow up echocardiogram: 06/16/2025 at 4:[address] Santiago's office
Other Services: Cardiac Rehab
Wound Care: No lotions, powders, or creams to puncture sites.
Specialty Instructions: Weigh Daily- Call MD for wt gain/loss 3 lbs overnight/5 lbs in 1 week
Referrals:
CT Transitional Care Nurse [Outside]
Referral Note: The Cardiothoracic Transitional Care Nurse will call you to set up a visit in 1-2 days.
Pramod Hart MD [Active, Cardiology] - in four to six weeks
Referral Note: Please note: Dr. Hart's office # has changed to: [phone]. THEY WILL CALL YOU TO SCHEDULE YOUR POST OPERATIVE APPOINTMENT. SHOULD OCCUR WEEK OF 06/28 or 07/05
Jacque Yu DO [Family Provider, Family Practice]
Prescriptions:
Continued
ipratropium bromide 17 mcg/actuation Hfa Aerosol Inhaler
2 puff INHALATION Q8H PRN (Reason: nasal stuffiness)
clopidogrel 75 mg Tablet
75 mg PO DAILY Qty: 0 0RF
aspirin 81 mg tablet,delayed release (DR/EC)
81 mg PO DAILY Qty: 1 0RF
famotidine 20 mg Tablet
20 mg PO HS Qty: 0 0RF
albuterol sulfate 90 mcg/actuation Hfa Aerosol Inhaler
1 inh INHALATION DAILY Qty: 0 0RF
bimatoprost 0.01 % Drops
1 drp OPHTHALMIC (EYE) QPM Qty: 0 0RF
Rx Instructions:
both eyes
Dupixent Syringe 300 mg/2 mL Syringe
300 mg SC Q2W Qty: 0 0RF
Trelegy Ellipta 100-62.5-25 mcg Blister With Device
1 inh INHALATION DAILY Qty: 0 0RF
calcium carbonate
1 tab PO DAILY Qty: 0 0RF
Changed
atorvastatin 10 mg tablet
10 mg PO HS Qty: 0 0RF
Discharge Orders:
Discharge Patient (As Directed); Ordered 05/28/25
Ordered By: Shalini Salazar
Care Plan Goals
Care Plan Goals:
Problem: Readiness for enhanced knowledge related to diagnosis and treatment plan
Goal: Understand your diagnosis and treatment plan needs, including medications if applicable.
Instructions: Know your diagnosis, underlying causes and treatment plan options, including medications if applicable. Consult with your health care team to learn about your diagnosis and treatment plan, including medications if applicable.
Discharge Date and Time
Print Language: UKRAINIAN
--- NOTE | 2025-05-28 10:30 | CM ---
Chart reviewed. Patient is independent of ADLS, lives with his in [address], 1 NADIR, 0 DME. Plan is for the patient to return home with CT Transitional RN. CM to follow
--- NOTE | 2025-05-28 10:32 | W.PN.ANS.POP ---
Anesthesia Post Operative
- Anesthesia Post Op Note
Vital Signs Stable-See Nursing Note: Yes
Airway Patent: Yes
Adequate Pain Control: Yes
Change in Mental Status: No
Current Postoperative Nausea & Vomiting: No
Anesthesia Complications: No
General Anesthetic Recall: No
Unplanned Admission: No
Post Op Hydration Adequate: Yes
[2025-05-28 11:48] VITALS: BP 116/60
[2025-05-28 14:52] VITALS: BP 135/69
--- NOTE | 2025-05-28 16:07 | PTCARENOTE ---
Pt seen by Shalini Salazar NP and Darlin Aburto NP. Echo done and reviewed. Pt seen by Cardiac Rehab. Telemetry and IV devices removed. Discharge instructions reviewed with pt regarding rhythm star monitor, wound care, activity and driving
restrictions, medications and their possible side effects, reporting cares and concerns and follow up appt's. Very good understanding verbalized. Pt escorted out via wheelchair and discharged to home.
== END 2025-05-28 15:50 | disposition home or self-care (01) | DRG 267 ==
LOC: IVU 07:23
PROVIDERS: Physician Assistant Medical; ADMITTING PHYSICIAN Thoracic Surgery (Cardiothoracic Vascular Surgery); ATTENDING PHYSICIAN Thoracic Surgery (Cardiothoracic Vascular Surgery); CONSULT PHYSICIAN Internal Medicine Interventional Cardiology; FAMILY PHYSICIAN Family Medicine; REFERRING PHYSICIAN Internal Medicine Cardiovascular Disease
PROC: 02RF38Z Replacement of Aortic Valve with Zooplastic Tissue, Percutaneous Approach (ICD-10-PCS; 2025-05-27)
DX: I35.2 Nonrheumatic aortic (valve) stenosis with insufficiency (principal); J84.9 Interstitial pulmonary disease, unspecified; I44.7 Left bundle-branch block, unspecified; R00.1 Bradycardia, unspecified; I25.10 Atherosclerotic heart disease of native coronary artery without angina pectoris; J44.9 Chronic obstructive pulmonary disease, unspecified; G47.33 Obstructive sleep apnea (adult) (pediatric); E78.5 Hyperlipidemia, unspecified; K21.9 Gastro-esophageal reflux disease without esophagitis; M19.90 Unspecified osteoarthritis, unspecified site; Z95.5 Presence of coronary angioplasty implant and graft; Z92.3 Personal history of irradiation; Z85.46 Personal history of malignant neoplasm of prostate; Z87.891 Personal history of nicotine dependence; Z79.82 Long term (current) use of aspirin
CPT/HCPCS: 33361; 36415; 71045; 71046; 80048; 80053; 81003; 82248; 83036; 83880; 85025; 85027; 85347; 85610; 86850; 86900; 86901; 87070; 93005; 93308; 93321; 93325; 94640; C1760; C1769; C1894; Q9967